=== PATIENT | male | born 1955 | race Hispanic/Latino ===

== ENCOUNTER → 2021-12-10 | Day surgery (SDC) | payer MEDICARE ==
[2021-12-08 12:09] LABS: BASOPHILS % 0.4 % (0.0-1.0); EOSINOPHILS % 0.4 % (0.0-6.0); HEMATOCRIT 44.3 % (38.2-49.6); HEMOGLOBIN 14.5 g/dL (14.0-18.0); LYMPHOCYTES # (AUTO) 2.2 (1.0-3.2); LYMPHOCYTES % 27.2 % (18.0-39.1); MEAN CORPUSCULAR HEMOGLOBIN 30.5 pg (28-32); MEAN CORPUSCULAR HGB CONC 32.7 g/dL (31-35); MEAN CORPUSCULAR VOLUME 93.1 fL (81-99); MONOCYTES # (AUTO) 0.7 (0.2-0.8); MONOCYTES % 8.4 % (4.4-11.3); NEUTROPHILS # (AUTO) 5.1 (2.1-6.9); NEUTROPHILS % 63.3 % (38.7-80.0); PLATELET COUNT 183 x10e3/uL (140-360); RED BLOOD COUNT 4.76 x10e6/uL (4.3-5.7); RED CELL DISTRIBUTION WIDTH 13.4 % (11.7-14.4)
[~2021-12-10] MED LIST: HYDROCODON-ACE1 EA16 PO; HYOSCYAMINE SULFATE 0.5 MG/ML INJ ONE; LIDOCAINE HCL 2% LOCAL INJ 5 ML SDV VIAL INJ ONE; PROPOFOL IV EMULSION 10 MG/ML 20 ML VIAL ONE; TYLENOL EXTRA500 MG PO
[2021-12-10 14:00] VITALS: BP 126/85
== END | disposition home or self-care (01) ==
LOC: OR 10:55
PROVIDERS: ATTEND Internal Medicine Gastroenterology
DX: R19.7 Diarrhea, unspecified (principal); D12.4 Benign neoplasm of descending colon; D12.5 Benign neoplasm of sigmoid colon; K29.00 Acute gastritis without bleeding; K29.50 Unspecified chronic gastritis without bleeding; B96.81 Helicobacter pylori [H. pylori] as the cause of diseases classified elsewhere; K20.90 Esophagitis, unspecified without bleeding; R15.2 Fecal urgency; K64.8 Other hemorrhoids; R63.4 Abnormal weight loss; N20.0 Calculus of kidney; K80.80 Other cholelithiasis without obstruction; Z01.810 Encounter for preprocedural cardiovascular examination; Z01.812 Encounter for preprocedural laboratory examination; Z20.822 Contact with and (suspected) exposure to COVID-19; Z68.1 Body mass index [BMI] 19.9 or less, adult
CPT/HCPCS: 0223U; 36415; 43239; 45380; 45385; 85025; 93005; C9113; J1980; J2001; J2704; 45378

== ENCOUNTER 2022-01-07 10:37 | Observation (INO) | payer MEDICARE ==
[~2022-01-07] VITALS: Ht 160 cm; Wt 39.5 kg
[~2022-01-07 10:37] MED LIST changes: -HYOSCYAMINE SULFATE 0.5 MG/ML INJ ONE; -LIDOCAINE HCL 2% LOCAL INJ 5 ML SDV VIAL INJ ONE; -PROPOFOL IV EMULSION 10 MG/ML 20 ML VIAL ONE
[2022-01-07 12:43] VITALS: BP 101/70
[2022-01-07 12:48] VITALS: BP 101/70
[2022-01-07 13:07] VITALS: BP 101/70
[2022-01-07] MEDS ORDERED: ENOXAPARIN SOD INJ 40 MG/0.4 ML SYR SC ONE (14:00)
[2022-01-07 14:33] LABS: BASOPHILS % 0.3 % (0.0-1.0); EOSINOPHILS # (AUTO) 0.1 (0.0-0.4); EOSINOPHILS % 1.4 % (0.0-6.0); HEMATOCRIT 41.4 % (38.2-49.6); HEMOGLOBIN 13.9 g/dL (14.0-18.0); LYMPHOCYTES # (AUTO) 1.6 (1.0-3.2); LYMPHOCYTES % 24.8 % (18.0-39.1); MEAN CORPUSCULAR HEMOGLOBIN 30.6 pg (28-32); MEAN CORPUSCULAR HGB CONC 33.6 g/dL (31-35); MEAN CORPUSCULAR VOLUME 91.2 fL (81-99); MONOCYTES # (AUTO) 0.7 (0.2-0.8); MONOCYTES % 10.3 % (4.4-11.3); NEUTROPHILS # (AUTO) 4.1 (2.1-6.9); PLATELET COUNT 204 x10e3/uL (140-360); RED BLOOD COUNT 4.54 x10e6/uL (4.3-5.7); RED CELL DISTRIBUTION WIDTH 13.2 % (11.7-14.4)
[2022-01-07 14:48] LABS: INR 1.05; PROTHROMBIN TIME 14.6 seconds (11.9-14.5)
[2022-01-07 14:58] LABS: ALBUMIN 3.8 g/dL (3.5-5.0); ALBUMIN/GLOBULIN RATIO 1.6 (0.8-2.0); ANION GAP 11.9 mmol/L (8-16); CALCIUM 8.9 mg/dL (8.4-10.2); CREATININE, SERUM 0.79 mg/dL (0.72-1.25); POTASSIUM 3.9 mmol/L (3.5-5.1)
[2022-01-07 15:52] VITALS: BP 99/63
[2022-01-07 20:33] VITALS: BP 99/63
[2022-01-07 20:43] VITALS: BP 94/54
[2022-01-07] MEDS: ENOXAPARIN SOD INJ 40 MG/0.4 ML SYR SC SCH (20:47)
[2022-01-08] VITALS (18 sets, daily range): BP systolic 96–121; BP diastolic 52–76
[2022-01-08] MEDS: ENOXAPARIN SOD INJ 40 MG/0.4 ML SYR SC SCH ×2 (09:11→21:46)
[2022-01-08] MEDS ORDERED: LIDOCAINE 1% 5ML-MPF INJ ONE (12:14)
[2022-01-08] MEDS ORDERED: HEPARIN SOD/SOD CHLORIDE 2,000 ML ONE (12:23)
[2022-01-08] MEDS ORDERED: NITROGLYCERIN/D5W 200 MCG/ML 250 ML ONE (12:23)
[2022-01-08] MEDS ORDERED: IOPAMIDOL 370 MG/ML 100 ML INFUS..BTL INJ ONE (12:23)
[2022-01-08] MEDS ORDERED: SODIUM CHLORIDE 0.9% 1000ML 1,000 ML ONE (12:23)
[2022-01-08] MEDS ORDERED: FENTANYL CITRATE/PF 100MCG/2 ML INJ ONE (12:25)
[2022-01-08] MEDS ORDERED: VERAPAMIL HCL 2.5 MG/ML 2 ML VIAL ONE (12:25)
[2022-01-08] MEDS ORDERED: MIDAZOLAM HCL 2 MG/2 ML VIAL ONE (12:25)
[2022-01-09] VITALS: BP 88/54
[2022-01-09 04:33] VITALS: BP 93/63
[2022-01-09 07:55] VITALS: BP 112/75
[2022-01-09] MEDS: ENOXAPARIN SOD INJ 40 MG/0.4 ML SYR SC SCH (08:25)
[2022-01-09 08:52] VITALS: BP 112/75
[2022-01-09] MEDS ORDERED: LISINOPRIL 2.5 MG TAB PO SCH (09:00)
[2022-01-09] MEDS ORDERED: METOPROLOL SUCCINATE 25 MG TAB XL PO SCH (09:00)
[2022-01-09] MEDS ORDERED: LISINOPRIL5 MG PO (11:03)
[2022-01-09] MEDS ORDERED: METOPROLOL SUCC25 MG PO (11:03)
[2022-01-09] MEDS ORDERED: WARFARIN SODIUM5 MG PO (11:04)
[2022-01-09] MEDS ORDERED: LOVENOX40 MG/0.4 SC (11:04)
== END 2022-01-09 11:24 | disposition home or self-care (01) ==
LOC: MED/SURG3 12:18 → INTOOBSV 12:18
DX: I25.10 Atherosclerotic heart disease of native coronary artery without angina pectoris (principal); I11.0 Hypertensive heart disease with heart failure; K40.90 Unilateral inguinal hernia, without obstruction or gangrene, not specified as recurrent; I50.23 Acute on chronic systolic (congestive) heart failure; I25.82 Chronic total occlusion of coronary artery; E66.01 Morbid (severe) obesity due to excess calories; Z68.43 Body mass index [BMI] 50.0-59.9, adult; F99 Mental disorder, not otherwise specified; I51.3 Intracardiac thrombosis, not elsewhere classified; Z20.822 Contact with and (suspected) exposure to COVID-19
CPT/HCPCS: 36415; 71046; 76937; 80053; 85025; 85610; 93005; 93454; C1887; G0378 ×3; J1650 ×3; J2250; J3010; J7030; Q9967; U0002; 99152